=== PATIENT | female | born 1975 | race Caucasian/White ===

== ENCOUNTER 2016-06-29 03:29 | Emergency (ER) | payer MEDICAID ==
[2016-06-29] MEDS ORDERED: ONDANSETRON 4 MG/2 ML VIAL IVP ONE (03:35)
[2016-06-29] MEDS ORDERED: NS 1,000 ML IV ONE (03:35)
[2016-06-29] MEDS ORDERED: IPRATROPIUM/ALBUTEROL 3 ML DEYVIAL IH ONE (03:36)
--- NOTE | 2016-06-29 03:40 | EDPHY ---
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 She presents emergency room from [facility] for left-sided sudden onset sharp stabbing pleuritic pain. Patient tells me every time she takes deep breath in she gets excruciating sharp stabbing left-sided chest wall pain and at times the pain radiates to her left shoulder. She denies chest pressure, denies nausea vomiting, denies shortness of breath. She does tell me that she has been sick over the past 3 days with a cough nonproductive. She does smoke tobacco. She denies trauma or denies being assaulted. Past Medical History: PTSD, anxiety, depression, IV drug use, methamphetamine use Past Surgical History: No recent pertinent surgery Social History: Daily tobacco use, denies illicit drugs, denies alcohol Family History: noncontributory ROS REVIEW OF SYSTEMS: A comprehensive 10 point review of systems is otherwise negative aside from elements mentioned in the history of present illness. Exam Constitutional triage nursing summary reviewed, vital signs reviewed, awake/ alert. Eyes normal conjunctivae and sclera, EOMI, PERRLA. HENT normal inspection, atraumatic, moist mucus membranes, no epistaxis, neck supple/ no meningismus, no raccoon eyes. Respiratory clear to auscultation bilaterally, normal breath sounds, no respiratory distress, no wheezing. Cardiovascular rate normal, regular rhythm, no murmur, no edema, distal pulses normal. Gastrointestinal soft, non-tender, no rebound, no guarding, normal bowel sounds, no distension, no pulsatile mass. Genitourinary no CVA tenderness. Musculoskeletal no midline vertebral tenderness, full range of motion, no calf swelling, no tenderness of extremities, no meningismus, good pulses, neurovascularly intact. Skin pink, warm, & dry, no rash, skin atraumatic. Neurologic awake, alert and oriented x 3, AAOx3, moves all 4 extremities equally, motor intact, sensory intact, CN II-XII intact, normal cerebellar, normal vision, normal speech. Psychiatric normal mood/affect. Heme/Lymph/Immune no lymphadenopathy. Differential diagnosis includes but is not limited to: ACS, atypical chest pain , pneumothorax, pneumonia, pulmonary embolism, aortic dissection, congestive heart failure, tumor, musculoskeletal pain, esophageal pain, GERD, peptic ulcer disease, pancreatitis Medical Decision Making: This patient had an IV established will obtain blood work, patient be medicated with IV morphine for pain control she will have a two view chest x-ray will check a D-dimer should be hydrated IV fluid she received a DuoNeb breathing treatment. Re-evaluation: EKG interpretation by me on record in [employer] system. Impression time of EKG 4:00 a.m., this is sinus tachycardia rate of 110. T-wave flattening in the precordial leads however no acute ischemic changes appreciated specifically no ST elevation or ST depression. ED x-ray chest two view: shows haziness left lower lobe, otherwise unremarkable. No evidence of pneumothorax or rib fractures. No evidence of dense infiltrate. 0413: patient is resting comfortably no hypoxia no fever. Does have pleuritic pain her D-dimer is negative. She is getting IV fluids at this time. X-ray has been reviewed and does show little bit of haziness left lower lobe possible pneumonia. Patient does have a leukocytosis. I have ordered her IV azithromycin and Rocephin. 0439: Re-examination at this time this patient resting comfortably. Afebrile no hypoxia. Pain well controlled. Patient agreeable on discharge Patient understands return emergency room if there is any worsening symptoms questions or concerns. Source: Patient, EMS - Medical/Surgical History Hx Asthma: No Hx Chronic Respiratory Disease: No Hx Diabetes: No Hx Cardiac Disease: No Hx Renal Disease: No Hx Cirrhosis: No Hx Alcoholism: Yes Hx HIV/AIDS: No Hx Splenectomy or Spleen Trauma: No Other PMH: depression/anxiety. meth use. opiate use/cervical cancer/leap - Social History Smoking Status: Current every day smoker Constitutional: Initial Vital Signs Temperature (C) 37.4 C 06/29/16 03:39 Heart Rate 111 H 06/29/16 03:39 Respiratory Rate 18 06/29/16 03:39 Blood Pressure 120/65 06/29/16 03:39 O2 Sat (%) 96 06/29/16 03:39 O2 Delivery Mode Room Air Allergies/Adverse Reactions: doxycycline Allergy (Verified 06/29/16 03:39) Sulfa (Sulfonamide Antibiotics) Allergy (Verified 06/29/16 03:39) Home Medications: Medication Instructions Recorded clonazePAM [Klonopin] 0.5 mg PO BID 12/07/10 Topamax 08/02/13 Venlafaxine Xr [Effexor Xr] 300 mg PO DAILY #6 cap 08/06/13 Cephalexin 500 mg PO TID #21 cap 11/29/13 Neurontin 11/29/13 AZITHROMYCIN [Z-PACK] 250 mg PO DAILY #6 tab 06/29/16 Albuterol [Proventil Inhaler HFA 1 - 2 puffs IH Q4H #1 mdi 06/29/16 (*)] Guaifenesin [Guaifenesin ER] 600 mg PO BID #14 tab.er.12h 06/29/16 Ibuprofen [Motrin (*)] 800 mg PO Q6-8PRN #10 tab 06/29/16 predniSONE 60 mg PO DAILY #15 tab 06/29/16 Medical Decision Making - Data Points Laboratory Results: Laboratory Results 06/29/16 03:30 06/29/16 03:30 06/29/16 06/29/16 06/29/16 03:30 03:30 03:30 WBC RBC Hgb Hct MCV MCH MCHC RDW Plt Count MPV Neut % (Auto) Lymph % (Auto) [place] % (Auto) Eos % (Auto) Baso % (Auto) Nucleat RBC Rel Count Absolute Neuts (auto) Absolute Lymphs (auto) Absolute Monos (auto) Absolute Eos (auto) Absolute Basos (auto) Absolute Nucleated RBC Immature Gran % Immature Gran # D-Dimer 0.28 ug/mLFEU ug/mLFEU (0.00-0.50) Sodium 140 mEq/L mEq/L (134-144) Potassium 4.2 mEq/L mEq/L (3.5-5.2) Chloride 107 mEq/L mEq/L (97-110) Carbon Dioxide 24 mEq/l mEq/l (22-31) Anion Gap 9 mEq/L mEq/L (8-16) BUN 9 mg/dL mg/dL (7-23) Creatinine 0.9 mg/dL mg/dL (0.6-1.0) Estimated GFR > 60 Glucose 103 mg/dL H mg/dL (70-100) Calcium 9.6 mg/dL mg/dL (8.5-10.4) Magnesium 2.0 mg/dL mg/dL (1.6-2.3) Total Bilirubin 0.8 mg/dL mg/dL (0.1-1.4) Conjugated Bilirubin 0.3 mg/dL mg/dL (0.0-0.5) Unconjugated Bilirubin 0.5 mg/dL mg/dL (0.0-1.1) AST 22 IU/L IU/L (14-46) ALT 26 IU/L IU/L (9-52) Alkaline Phosphatase 69 IU/L IU/L (38-126) Creatine Kinase 64 IU/L IU/L (0-156) CK-MB (CK-2) Fraction 1.03 ng/mL ng/mL (0-3.19) Troponin I < 0.012 ng/mL ng/mL (0-0.034) NT-Pro-B Natriuret Pep 128 pg/mL H pg/mL (0-125) Total Protein 7.4 g/dL g/dL (6.3-8.2) Albumin 4.3 g/dL g/dL (3.5-5.0) Lipase 91.0 IU/L IU/L (23-300) Beta HCG, Qual NEGATIVE 06/29/16 03:30 WBC 16.03 10^3/uL H 10^3/uL (3.80-9.50) RBC 4.47 10^6/uL 10^6/uL (4.18-5.33) Hgb 13.8 g/dL g/dL (12.6-16.3) Hct 41.0 % % (38.0-47.0) MCV 91.7 fL fL (81.5-99.8) MCH 30.9 pg pg (27.9-34.1) MCHC 33.7 g/dL g/dL (32.4-36.7) RDW 11.7 % % (11.5-15.2) Plt Count 372 10^3/uL 10^3/uL (150-400) MPV 9.9 fL fL (8.7-11.7) Neut % (Auto) 84.8 % H % (39.3-74.2) Lymph % (Auto) 7.0 % L % (15.0-45.0) [place] % (Auto) 7.1 % % (4.5-13.0) Eos % (Auto) 0.4 % L % (0.6-7.6) Baso % (Auto) 0.2 % L % (0.3-1.7) Nucleat RBC Rel Count 0.0 % % (0.0-0.2) Absolute Neuts (auto) 13.59 10^3/uL H 10^3/uL (1.70-6.50) Absolute Lymphs (auto) 1.12 10^3/uL 10^3/uL (1.00-3.00) Absolute Monos (auto) 1.14 10^3/uL H 10^3/uL (0.30-0.80) Absolute Eos (auto) 0.06 10^3/uL 10^3/uL (0.03-0.40) Absolute Basos (auto) 0.04 10^3/uL 10^3/uL (0.02-0.10) Absolute Nucleated RBC 0.00 10^3/uL 10^3/uL (0-0.01) Immature Gran % 0.5 % % (0.0-1.1) Immature Gran # 0.08 10^3/uL 10^3/uL (0.00-0.10) D-Dimer Sodium Potassium Chloride Carbon Dioxide Anion Gap BUN Creatinine Estimated GFR Glucose Calcium Magnesium Total Bilirubin Conjugated Bilirubin Unconjugated Bilirubin AST ALT Alkaline Phosphatase Creatine Kinase CK-MB (CK-2) Fraction Troponin I NT-Pro-B Natriuret Pep Total Protein Albumin Lipase Beta HCG, Qual Medications Given: Discontinued Medications Albuterol/Ipratropium (Duoneb) 3 ml IH EDNOW ONE Stop: 06/29/16 03:37 Last Admin: 06/29/16 03:52 Dose: 3 ml Sodium Chloride (Ns) 1,000 mls @ 0 mls/hr IV ONCE ONE PRN Reason: Wide Open Stop: 06/29/16 03:36 Last Admin: 06/29/16 03:52 Dose: 1,000 mls Morphine Sulfate (Morphine) 4 mg IVP EDNOW ONE Stop: 06/29/16 03:36 Last Admin: 06/29/16 03:53 Dose: 4 mg Ondansetron HCl (Zofran) 4 mg IVP EDNOW ONE Stop: 06/29/16 03:36 Last Admin: 06/29/16 03:53 Dose: 4 mg Departure - Departure Disposition: Home, Routine, Self-Care Clinical Impression: Pleurisy Pneumonia Qualifiers: Pneumonia type: due to unspecified organism Laterality: left Lung location: lower lobe of lung Qualified Code(s): J18.1 - Lobar pneumonia, unspecified organism Acute bronchitis Qualifiers: Bronchitis organism: unspecified organism Qualified Code(s): J20.9 - Acute bronchitis, unspecified Condition: Good Instructions: Pleurisy (ED), Pneumonia (ED) Additional Instructions: 1. Drink lots of fluids stay well-hydrated 2. Return to the emergency room if you have any worsening symptoms questions or concerns 3. Take your antibiotics as prescribed. Referrals: Patient,NotPresent [Unknown] - As per Instructions Prescriptions: Albuterol [Proventil Inhaler HFA (*)] 1 - 2 puffs IH Q4H #1 mdi AZITHROMYCIN [Z-PACK] 250 mg PO DAILY #6 tab Guaifenesin [Guaifenesin ER] 600 mg PO BID #14 tab.er.12h Ibuprofen [Motrin (*)] 800 mg PO Q6-8PRN #10 tab predniSONE 60 mg PO DAILY #15 tab
[2016-06-29 03:42] VITALS: RESP 18
[2016-06-29 03:49] LABS: % IMMATURE GRANULYOCYTES 0.5 % (0.0-1.1); ABSOLUTE IMMATURE GRANULOCYTES 0.08 10^3/uL (0.00-0.10); ADD DIFF? NO; ADD MORPH? NO; ADD SCAN? NO; ATYPICAL LYMPHOCYTE FLAG 0 (0-99); FRAGMENT RBC FLAG 0 (0-99); HEMOGLOBIN 13.8 g/dL (12.6-16.3); LEFT SHIFT FLG 0 (0-99); LIPEMIA HEMOLYSIS FLAG 80 (0-99); MEAN CELL HEMOGLOBIN 30.9 pg (27.9-34.1); MEAN CELL HEMOGLOBIN CONCENTR. 33.7 g/dL (32.4-36.7); MEAN CELL VOLUME 91.7 fL (81.5-99.8); MEAN PLATELET VOLUME 9.9 fL (8.7-11.7); PLATELET CLUMPS FLAG 0 (0-99); PLATELET COUNT 372 10^3/uL (150-400); RED BLOOD CELL COUNT 4.47 10^6/uL (4.18-5.33); RED CELL DISTRIBUTION WIDTH 11.7 % (11.5-15.2)
[2016-06-29 04:01] LABS: ALANINE AMINOTRANSFERASE 26 IU/L (9-52); ALBUMIN 4.3 g/dL (3.5-5.0); ALKALINE PHOSPHATASE 69 IU/L (38-126); ANION GAP 9 mEq/L (8-16); ASPARTATE AMINOTRANSFERASE 22 IU/L (14-46); BILIRUBIN,TOTAL 0.8 mg/dL (0.1-1.4); BILIRUBIN-CONJUGATED 0.3 mg/dL (0.0-0.5); BILIRUBIN-UNCONJUGATED 0.5 mg/dL (0.0-1.1); CALCIUM 9.6 mg/dL (8.5-10.4); CARBON DIOXIDE 24 mEq/l (22-31); CHLORIDE 107 mEq/L (97-110); CREATININE 0.9 mg/dL (0.6-1.0); GLOMERULAR FILTRATION RATE > 60; GLUCOSE 103 mg/dL (70-100); POTASSIUM 4.2 mEq/L (3.5-5.2); SODIUM 140 mEq/L (134-144); TOTAL PROTEIN 7.4 g/dL (6.3-8.2)
[2016-06-29 04:12] LABS: CREATINE KINASE-MB FRACTION 1.03 ng/mL (0-3.19); TROPONIN I < 0.012 ng/mL (0-0.034)
[2016-06-29] MEDS ORDERED: AZITHROMYCIN IV 500 MG in D5W 250 ML IV ONE (04:12)
[2016-06-29] MEDS ORDERED: KETOROLAC 30 MG/1 ML SDV ONE (04:25)
[2016-06-29] MEDS ORDERED: KETOROLAC 30 MG/1 ML SDV IVP ONE (04:31)
--- NOTE | 2016-06-29 04:46 | CPEKG ---
Heart Rate: 110 RR Interval: 545 P-R Interval: 112 QRSD Interval: 90 QT Interval: 332 QTC Interval: 450 P Riner: 50 QRS Riner: 87 T Wave Riner: 7 EKG Severity - BORDERLINE ECG - EKG Impression: SINUS TACHYCARDIA EKG Impression: BORDERLINE T ABNORMALITIES, ANT-LAT LEADS Electronically Signed By: Bakari Roberson 30-Jun-2016 06:38:41
[2016-06-29 06:36] VITALS: BP 102/68; PULSE 82; TEMP 98.8; O2SAT 95
== END 2016-06-29 07:11 | disposition home or self-care (01) ==
LOC: EDUNIT#
DX: R09.1 Pleurisy (principal); J18.1 Lobar pneumonia, unspecified organism; J20.9 Acute bronchitis, unspecified; F17.200 Nicotine dependence, unspecified, uncomplicated
CPT/HCPCS: 96365; J0456; J0696; J1885; J2405

== ENCOUNTER 2016-09-10 07:32 | Emergency (ER) | payer MEDICAID ==
--- NOTE | 2016-09-10 09:00 | EDPHY ---
H & P Stated Complaint: LAC R EYEBROW - Personal History Current Tetanus/Diphtheria Vaccine: Yes Tetanus Vaccine Date: 2015 - Medical/Surgical History Hx Asthma: No Hx Chronic Respiratory Disease: No Hx Diabetes: No Hx Cardiac Disease: No Hx Renal Disease: No Hx Cirrhosis: No Hx Alcoholism: Yes Hx HIV/AIDS: No Hx Splenectomy or Spleen Trauma: No Other PMH: depression/anxiety. meth use. opiate use/cervical cancer/leap - Social History Smoking Status: Current every day smoker Time Seen by Provider: 09/10/16 07:54 HPI/ROS: Chief complaint: Right eyebrow laceration History of present illness: This is a 40-year-old female who presents to the emergency department for evaluation of a right eyebrow laceration. Late last night patient was kneeling on the floor, doing laundry when she lost her balance and fell forward striking her right eyebrow region against the floor and cutting it. Minimal pain associated with the laceration. Bleeding has been controlled. Patient denies any loss of consciousness. She denies pain anywhere else in the face or head or neck. No neurologic symptoms such as headache, paresthesias, weakness or paralysis or bowel or bladder dysfunction. Her tetanus is up-to-date. (Gary Hawkins) - Physical Exam Exam: General: Alert, nontoxic Skin: 1 cm laceration to the right eyebrow region. No deep structure injury or foreign bodies identified. Eyes: PERRLA. EOM intact. ENT: No hemotympanum, no bergeron sign, no raccoon eyes Musculoskeletal: There is no tenderness, crepitus or bony deformity around the laceration. The face, head and cervical spine are nontender. No crepitus or bony deformity appreciated. (Gary Hawkins) Constitutional: Initial Vital Signs Temperature (C) 36.8 C 09/10/16 07:34 Heart Rate 89 09/10/16 07:34 Respiratory Rate 16 09/10/16 07:34 Blood Pressure 113/69 09/10/16 07:34 O2 Sat (%) 94 09/10/16 07:34 O2 Delivery Mode Room Air Allergies/Adverse Reactions: doxycycline Allergy (Verified 06/29/16 03:39) Sulfa (Sulfonamide Antibiotics) Allergy (Verified 06/29/16 03:39) Home Medications: Medication Instructions Recorded clonazePAM [Klonopin] 0.5 mg PO BID 12/07/10 Topamax 08/02/13 Venlafaxine Xr [Effexor Xr] 300 mg PO DAILY #6 cap 08/06/13 Cephalexin 500 mg PO TID #21 cap 11/29/13 Neurontin 11/29/13 AZITHROMYCIN [Z-PACK] 250 mg PO DAILY #6 tab 06/29/16 Albuterol [Proventil Inhaler HFA 1 - 2 puffs IH Q4H #1 mdi 06/29/16 (*)] Guaifenesin [Guaifenesin ER] 600 mg PO BID #14 tab.er.12h 06/29/16 Ibuprofen [Motrin (*)] 800 mg PO Q6-8PRN #10 tab 06/29/16 predniSONE 60 mg PO DAILY #15 tab 06/29/16 Medical Decision Making Procedures: Procedure: Laceration repair. Verbal consent was obtained from the patient. The 1 cm laceration on the right eyebrow was anesthetized in the usual fashion. The wound was irrigated, draped and explored to its base with a gloved finger. There were no deep structures involved. No tendon injury was identified. The wound was repaired with 5 0 Prolene, 4 simple interrupted sutures. The wound repair was simple. The procedure was performed by myself. (Gary Hawkins) ED Course/Re-evaluation: Patient seen under the supervision of my secondary supervising physician Dr. Mary Guillermo. Patient presents to the emergency department for a laceration to her right eyebrow region. She is nontoxic. Vital signs are stable. By history and physical exam my suspicion for serious trauma including head injury or neck injury is low. I do not believe imaging studies are warranted. The wound is cleaned, repaired and dressed. She is discharged home. Home care is discussed. Return precautions are given. Patient voiced understanding and agreement with plan. (Gary Hawkins) Differential Diagnosis: Included but not limited to soft tissue injury, unlikely bony injury or intracranial injury (Gary Hawkins) Other Provider: The patient was evaluated and managed by the Physician Protective Signal Repairer Helper/ Nurse Practitioner. I discussed the patient's presentation and course with the midlevel provider with them and agree with the evaluation. My co-signature indicates that I have reviewed this chart and I agree with the findings and plan of care as documented. I am the secondary supervising physician. (Mary Guillermo) Departure - Departure Disposition: Home, Routine, Self-Care Clinical Impression: Laceration Condition: Good Instructions: Care For Your Stitches (ED), Laceration (ED), Acute Wounds (ED) Additional Instructions: Follow-up with your primary care doctor for recheck Stitches to be removed in 7 days If symptoms worsen or new symptoms develop return to the emergency room for recheck Referrals: Reyna Long PA [Primary Care Provider] - As per Instructions
[2016-09-10 09:11] VITALS: BP 109/69; PULSE 67; RESP 14; TEMP 98.1; O2SAT 96
== END 2016-09-10 09:09 | disposition home or self-care (01) ==
PROC: 0HQ1XZZ Repair Face Skin, External Approach (ICD-10-PCS; principal; 2016-09-10)
DX: S01.111A Laceration without foreign body of right eyelid and periocular area, initial encounter (principal); F17.200 Nicotine dependence, unspecified, uncomplicated; W01.10XA Fall on same level from slipping, tripping and stumbling with subsequent striking against unspecified object, initial encounter